=== PATIENT | male | born 2000 | race Two or more races ===

== ENCOUNTER 2023-05-31 02:20 | Emergency (ER) | payer SELFPAY ==
[2023-05-31 02:47] VITALS: BP 126/80; PULSE 80; RESP 19; TEMP 98; BMI 26.6
[2023-05-31 03:23] LABS: BASO % 0.3 % (0-2.0); EOS % 0.6 % (0-4.5); HEMATOCRIT 51.1 % (35.4-49); HEMOGLOBIN 17.3 GM/dL (11.7-16.9); LYMPH % 7.8 % (8-40); MCHC 33.8 g/dl (32.0-35.9); MEAN CELL VOLUME 91.6 fl (80-96); MEAN PLT VOLUME 8.1 fl (7.5-11.1); MONO % 5.3 % (3.8-10.2); PLATELET COUNT 228 10^3/uL (134-434); RBC 5.58 M/mm3 (4.00-5.60); RDW 13.9 % (11.9-15.9); WHITE BLOOD COUNT 7.7 K/mm3 (4.0-10.0)
[2023-05-31] MEDS ORDERED: ACETAMINOPHEN INJECTION 100 ML IVPB ONE (03:25)
[2023-05-31] MEDS ORDERED: ONDANSETRON 4 MG/2 ML VIAL ONE (03:25)
[2023-05-31] MEDS ORDERED: FAMOTIDINE 20 MG/50 ML IVPB 20 MG/50 ML MG IVPB ONE (03:26)
[2023-05-31] MEDS: LACTATED RINGERS SOLUTION 1000 ML INFUS.BAG IV ONE (03:38)
[2023-05-31] MEDS: ONDANSETRON 4 MG/2 ML VIAL IVPUSH ONE (03:38)
[2023-05-31] MEDS: FAMOTIDINE 20 MG/50 ML IVPB 20 MG/50 ML MG IVPB ONE (03:38)
[2023-05-31 03:42] LABS: POTASSIUM 4.1 mmol/L (3.5-5.1)
[2023-05-31 03:43] LABS: CALCIUM 10.1 mg/dL (8.5-10.1)
[2023-05-31 03:45] LABS: ALBUMIN 4.4 g/dl (3.4-5.0); BLOOD UREA NITROGEN 18.5 mg/dL (7-18)
[2023-05-31 03:48] LABS: CREATININE 1.3 mg/dL (0.55-1.3)
[2023-05-31 03:49] LABS: BILIRUBIN,TOTAL 0.9 mg/dL (0.2-1); TOT PROT 8.6 g/dl (6.4-8.2)
[2023-05-31] MEDS: ACETAMINOPHEN 1000 MG/100 ML BAG IVPB ONE (03:55)
== END 2023-05-31 05:20 | disposition home or self-care (01) ==
LOC: JER 02:20
PROC: 3E033GC Introduction of Other Therapeutic Substance into Peripheral Vein, Percutaneous Approach (ICD-10-PCS; principal; 2023-05-31)
PROC: 3E030GC Introduction of Other Therapeutic Substance into Peripheral Vein, Open Approach (ICD-10-PCS; 2023-05-31)
PROC: 3E030GC Introduction of Other Therapeutic Substance into Peripheral Vein, Open Approach (ICD-10-PCS; 2023-05-31)
DX: K52.29 Other allergic and dietetic gastroenteritis and colitis (principal); T78.1XXA Other adverse food reactions, not elsewhere classified, initial encounter; R11.2 Nausea with vomiting, unspecified; R10.13 Epigastric pain
CPT/HCPCS: 36415; 80053; 83690; 85025; 99284-25; J0131